=== PATIENT | female | born 1990 | race Caucasian/White ===

== ENCOUNTER 2016-12-28 11:25 | Emergency (ER) | payer SELFPAY ==
[2016-12-28 11:31] VITALS: BP 129/71; PULSE 86; TEMP 98.2; BMI 27.9
[2016-12-28] MEDS ORDERED: IBUPROFEN 400 MG TABLET (FP) PO ONE ×2 (11:48→11:55)
--- NOTE | 2016-12-28 11:54 | PDOC ---
History of Present Illness - General History Source: Patient - History of Present Illness Presenting Symptoms: Chest Pain Timing/Duration: reports: intermittent Chest Pain Radiation: reports: arms - General Chief Complaint: Chest Pain Stated Complaint: CHEST PAIN, LT SIDE NUMBNESS Time Seen by Provider: 12/28/16 11:36 Past History - Past Medical History Asthma: No Cancer: No Cardiac Disorders: No Diabetes: No HTN: No Seizures: No Thyroid Disease: No - Psycho/Social/Smoking Cessation Hx Suicidal Ideation: No Smoking History: Never smoked Have you smoked in the past 12 months: No Information on smoking cessation initiated: No Hx Alcohol Use: No Drug/Substance Use Hx: No Hx Substance Use Treatment: No - Past Medical History Allergies/Adverse Reactions: Allergies Allergy/AdvReac Type Severity Reaction Status Date / Time No Known Allergies Allergy Verified 12/28/16 11:31 Home Medications: Ambulatory Orders Acetaminophen [Tylenol .Regular Strength -] 650 mg PO Q3H PRN #0 tablet Ferrous Sulfate [Feosol] 325 mg PO BID #60 ud 03/06/15 Ibuprofen [Motrin -] 200 mg PO Q4H PRN #0 tablet 03/06/15 Vit/Iron Fumarate/FA [ Tablet] 1 each PO DAILY 03/06/15 Vitamins (Sjr) - 1 tab PO DAILY tablet 03/06/15 Review of Systems - Review of Systems Constitutional: No: Chills, Fever Respiratory: Yes: Shortness of Breath Cardiac (ROS): Yes: Chest Pain. No: Lightheadedness, Palpitations ABD/GI: No: Nausea, Vomiting Neurological: Yes: Headache. No: Dizziness *Physical Exam - Physical Exam General Appearance: Yes: Appropriately Dressed. No: Apparent Distress HEENT: positive: Normal Voice Neck: positive: Supple Respiratory/Chest: positive: Lungs Clear, Normal Breath Sounds. negative: Respiratory Distress Cardiovascular: positive: Regular Rate, S1, S2 Gastrointestinal/Abdominal: positive: Soft. negative: Tender Extremity: positive: Normal Inspection Integumentary: positive: Dry, Warm Neurologic: positive: Fully Oriented, Alert, Normal Mood/Affect, Motor Strength 5/5 - Vital Signs Last Vital Signs Temp Pulse Resp BP Pulse Ox 98.2 F 86 18 129/71 98 12/28/16 11:27 12/28/16 11:27 12/28/16 11:27 12/28/16 11:27 12/28/16 11:27 - Medications Given in the ED: ED Medications Discontinued Medications Generic Name Dose Route Start Last Admin Trade Name Sim PRN Reason Stop Dose Admin Ibuprofen 800 mg 12/28/16 11:48 12/28/16 11:54 Motrin - PO 12/28/16 11:49 800 mg ONCE ONE Administration Medical Decision Making - Medical Decision Making 12/28/16 11:51 12/28/16 12:04 26 yo F, denies any chronic medical complaints, presenting with chest pain. Patient reports left-sided chest pain radiating into left arm and possibly to left leg that started yesterday. States pain is moderate, but unable to describe. Pain intermittent with no exacerbating or alleviating factors. Patient states she's also short or breath, but when asked to explain what she means by "short of breath". Patient responds "like I'm claustrophobic". No palpitations, diaphoresis, n/v. had similar pain at 13 yo while residing in [facility] and went to the ER and given medications though unclear name and type. Denies illicit drug use. Pt also c/o frontal ALONSO x 4-5 days, similar to ALONSO in the past. No dizziness, visual changes, or n/v. See exam CP Recurrent Unlikely ACS and no RF for PE Stable and wel lyric w/ unremarkable exam -ekg/cxr/upreg -anticipate discharge ALONSO Recurrent No red flags -pain control -reassess 12/28/16 12:38 12/28/16 12:58 CXR and EKG unremarkable. Patient remained stable and were well-appearing throughout ED visit. CP and ALONSO since improved. Will dc with PMD follow-up as discussed with ER attending 12/28/16 13:02 (Beth Andre) 12/29/16 08:14 The patient was seen and evaluated in conjunction with LUL Andre under my direct supervision, ancillary studies were reviewed. I agree with the plan as outlined by LUL Andre . (Julien Ziegler) *DC/Admit/Observation/Transfer Diagnosis at time of Disposition: Chest pain Qualifiers: Chest pain type: unspecified Qualified Code(s): R07.9 - Chest pain, unspecified Headache Qualifiers: Headache type: unspecified Headache chronicity pattern: episodic headache Intractability: not intractable Qualified Code(s): R51 - Headache - Discharge Dispostion Disposition: HOME Condition at time of disposition: Improved - Patient Instructions Printed Discharge Instructions: DI for Atypical Chest Pain Additional Instructions: Jurado EKG y la radiografa de trax diandra normales hoy en da. Jurado prueba de embarazo tambin fue negativa. Aunque la causa de felipe quejas es incierta, no parece leonardo ninguna condicin mdica grave en maryanne momento. Si los sntomas persisten, llame para hacer naomi leeann con jurado mdico habitual Print Language: SETSWANA
--- NOTE | 2016-12-28 13:08 | EKG ---
Test Reason : Blood Pressure : / mmHG Vent. Rate : 082 BPM Atrial Rate : 082 BPM P-R Int : 124 ms QRS Dur : 090 ms QT Int : 408 ms P-R-T Axes : 053 045 037 degrees QTc Int : 476 ms NORMAL SINUS RHYTHM NORMAL ECG NO PREVIOUS ECGS AVAILABLE [facility] Confirmed by VAIBHAV OROURKE MD ([id number]) on 12/28/2016 1:08:18 PM Referred By: Confirmed By:VAIBHAV OROURKE MD
--- NOTE | 2016-12-28 13:13 | PDOC ---
*Physical Exam - Vital Signs Last Vital Signs Temp Pulse Resp BP Pulse Ox 98.2 F 86 18 129/71 98 12/28/16 11:27 12/28/16 11:27 12/28/16 11:27 12/28/16 11:27 12/28/16 11:27 Heart Score/ECG Review - ECG Intrepretation Comment:: 12/28/16 13:13 Twelve-lead EKG was performed and reviewed by me. There is normal sinus rhythm with a normal rate. The axis is normal. The intervals are normal. There are no ST or T wave abnormalities. Impression: Normal twelve-lead EKG ED Treatment Course - ADDITIONAL ORDERS Additional order review: Laboratory Results 12/28/16 12:14 Urine HCG, Qual Negative - RADIOLOGY Radiology Studies Ordered: Category Date Time Status CHEST X-RAY PORTABLE* [RAD] Stat Radiology 12/28/16 11:48 Completed - Medications Given in the ED: ED Medications Discontinued Medications Generic Name Dose Route Start Last Admin Trade Name Freq PRN Reason Stop Dose Admin Ibuprofen 800 mg 12/28/16 11:48 12/28/16 11:54 Motrin - PO 12/28/16 11:49 800 mg ONCE ONE Administration *DC/Admit/Observation/Transfer Diagnosis at time of Disposition: Chest pain Qualifiers: Chest pain type: unspecified Qualified Code(s): R07.9 - Chest pain, unspecified Headache Qualifiers: Headache type: unspecified Headache chronicity pattern: episodic headache Intractability: not intractable Qualified Code(s): R51 - Headache - Discharge Dispostion Disposition: HOME Condition at time of disposition: Improved - Referrals - Patient Instructions Printed Discharge Instructions: DI for Atypical Chest Pain Additional Instructions: Navarrete EKG y la radiografa de trax diandra normales hoy en da. Navarrete prueba de embarazo tambin fue negativa. Aunque la causa de felipe quejas es incierta, no parece leonardo ninguna condicin mdica grave en maryanne momento. Si los sntomas persisten, llame para hacer naomi leeann con navarrete mdico habitual Print Language: PRYDEINIG - Post Discharge Activity
== END 2016-12-28 13:07 | disposition home or self-care (01) ==
LOC: JER 11:25
DX: R07.89 Other chest pain (principal); R51 Headache
CPT/HCPCS: 71010-TC; 84703; 93005; 93010; 99282-25

== ENCOUNTER 2017-01-17 22:47 | Emergency (ER) | payer SELFPAY ==
[2017-01-17 22:51] VITALS: BP 123/80; PULSE 86; TEMP 98; BMI 29.2
--- NOTE | 2017-01-18 00:28 | PDOC ---
History of Present Illness - General History Source: Patient Exam Limitations: No Limitations - History of Present Illness Initial Comments: 01/18/17 01:12 The patient is a 26 year old female with no significant past medical history who presents to the ED with complaints of constipation. She states she has been unable to make a BM in four days. She denies taking any laxative or stool softener. The patient also adds that she has a decrease in appetite as well as some nausea but denies vomiting. She denies any fever, chills, chest pain, shortness of breath, or urinary symptoms. <Adeola Aguiar - Last Filed: 01/18/17 01:12> <SaulDenice Aliza - Last Filed: 01/19/17 02:12> - General Chief Complaint: Pain Stated Complaint: CONSTIPATION Past History <Adeola Aguiar - Last Filed: 01/18/17 01:12> - Past Medical History Asthma: No Cancer: No Cardiac Disorders: No Diabetes: No HTN: No Seizures: No Thyroid Disease: No Other medical history: Pt denies - Psycho/Social/Smoking Cessation Hx Suicidal Ideation: No Smoking History: Never smoked Have you smoked in the past 12 months: No Information on smoking cessation initiated: No Hx Alcohol Use: No Drug/Substance Use Hx: No Substance Use Type: None Hx Substance Use Treatment: No <SaulDenice Aliza - Last Filed: 01/19/17 02:12> - Past Medical History Allergies/Adverse Reactions: Allergies Allergy/AdvReac Type Severity Reaction Status Date / Time No Known Allergies Allergy Verified 01/17/17 22:48 Home Medications: Ambulatory Orders Acetaminophen [Tylenol .Regular Strength -] 650 mg PO Q3H PRN #0 tablet Ferrous Sulfate [Feosol] 325 mg PO BID #60 ud 03/06/15 Ibuprofen [Motrin -] 200 mg PO Q4H PRN #0 tablet 03/06/15 Vit/Iron Fumarate/FA [ Tablet] 1 each PO DAILY 03/06/15 Vitamins (Sjr) - 1 tab PO DAILY tablet 03/06/15 Review of Systems - Review of Systems Able to Perform ROS?: Yes Comments:: 01/18/17 01:12 CONSTITUTIONAL: Present: loss of appetite Absent: fever, chills, diaphoresis, generalized weakness, malaise HEENT: Absent: rhinorrhea, nasal congestion, throat pain, throat swelling, difficulty swallowing, mouth swelling, ear pain, eye pain, visual Changes CARDIOVASCULAR: Absent: chest pain, syncope, palpitations, irregular heart rate, lightheadedness , peripheral edema RESPIRATORY: Absent: cough, shortness of breath, dyspnea with exertion, orthopnea, wheezing, stridor, hemoptysis GASTROINTESTINAL: Present: constipation, nausea Absent: abdominal pain, abdominal distension, vomiting, diarrhea, melena, hematochezia GENITOURINARY: Absent: dysuria, frequency, urgency, hesitancy, hematuria, flank pain, genital pain MUSCULOSKELETAL: Absent: myalgia, arthralgia, joint swelling SKIN: Absent: rash, itching, pallor HEMATOLOGIC/IMMUNOLOGIC: Absent: easy bleeding, easy bruising, lymphadenopathy, frequent infections ENDOCRINE: Absent: unexplained weight gain, unexplained weight loss, heat intolerance, cold intolerance NEUROLOGIC: Absent: headache, focal weakness or paresthesias, dizziness, unsteady gait, seizure, mental status changes, bladder or bowel incontinence PSYCHIATRIC: Absent: anxiety, depression, suicidal or homicidal ideation, hallucinations. All Other Systems: Reviewed and Negative <Adeola Agiuar - Last Filed: 01/18/17 01:12> *Physical Exam - Vital Signs Last Vital Signs Temp Pulse Resp BP Pulse Ox 98.0 F 86 20 123/80 100 01/17/17 22:49 01/17/17 22:49 01/17/17 22:49 01/17/17 22:49 01/17/17 22:49 - Physical Exam Comments: 01/18/17 01:14 GENERAL: Well developed, well nourished. Awake and alert. No acute distress. HEENT: Normocephalic, atraumatic. PERRLA, EOMI. No conjunctival pallor. Sclera are non- icteric. Moist mucous membranes. Oropharynx is clear. NECK: Supple. Full ROM. No JVD. Carotid pulses 2+ and symmetric, without bruits. No thyromegaly. No lymphadenopathy. CARDIOVASCULAR: Regular rate and rhythm. No murmurs, rubs, or gallops. Distal pulses are 2+ and symmetric. PULMONARY: No evidence of respiratory distress. Lungs clear to auscultation bilaterally. No wheezing, rales or rhonchi. ABDOMINAL: Soft. Non-tender. Non-distended. No rebound or guarding. No organomegaly. Normoactive bowel sounds. MUSCULOSKELETAL Normal range of motion at all joints. No bony deformities or tenderness. No CVA tenderness. EXTREMITIES: No cyanosis. No clubbing. No edema. No calf tenderness. SKIN: Warm and dry. Normal capillary refill. No rashes. No jaundice. NEUROLOGICAL: Alert, awake, appropriate. Cranial nerves 2-12 intact. No deficits to light touch and temperature in face, upper extremities and lower extremities. No motor deficits in the in face, upper extremities and lower extremities. Normoreflexic in the upper and lower extremities. Normal speech. Toes are down-going bilaterally. Gait is normal without ataxia. PSYCHIATRIC: Cooperative. Good eye contact. Appropriate mood and affect. <Adeola Aguiar - Last Filed: 01/18/17 01:12> - Vital Signs Last Vital Signs Temp Pulse Resp BP Pulse Ox 98.0 F 86 20 123/80 100 01/17/17 22:49 01/17/17 22:49 01/17/17 22:49 01/17/17 22:49 01/17/17 22:49 <Denice Hughes - Last Filed: 01/19/17 02:12> Medical Decision Making - Medical Decision Making 01/18/17 02:30 86-year-old female presented with initial complained that she hadn't had a bowel movement in 4 days. However, with further questioning she admitted that she hasn't been eating as much as she normally does. I asked her if she is . She said she did not know know. Her last menstrual cycle was December 06. She had an IUD removed in October. She denies any recent and past medical history, Abd nontender, no rebound, no guarding She DENIED any Pelvic cramping or bleeding. 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 clinic ultrasound reveals sl IUP 6 weeks 4 days FHT 137,normal ovaries 01/18/17 02:39 <Denice Hughes - Last Filed: 01/19/17 02:12> *DC/Admit/Observation/Transfer - Attestations Scribe Attestion: 01/18/17 01:14 Documentation prepared by Adeola Aguiar, acting as medical assistant dermatology for Denice Hughes MD. <Adeola Aguiar - Last Filed: 01/18/17 01:12> <Denice Hughes - Last Filed: 01/19/17 02:12> Diagnosis at time of Disposition: Constipation - Discharge Dispostion Disposition: HOME Condition at time of disposition: Good - Patient Instructions Printed Discharge Instructions: DI for -- Discomforts and Remedies Additional Instructions: please followup with your supervisor photostat
[2017-01-18 01:14] LABS: URINE APPEARANCE CLEAR; URINE BILIRUBIN NEGATIVE (NEGATIVE); URINE BLOOD 1+ (NEGATIVE); URINE COLOR LTYELLOW; URINE GLUCOSE (UA) NEGATIVE (NEGATIVE); URINE KETONE NEGATIVE (NEGATIVE); URINE LEUK ESTERASE 3+ (NEGATIVE); URINE NITRITE NEGATIVE (NEGATIVE); URINE PROTEIN NEGATIVE (NEGATIVE); URINE UROBILINOGEN NEGATIVE mg/dL (0.2-1.0)
[2017-01-18 01:20] LABS: URINE BACTERIA RARE /hpf (NONE SEEN); URINE RBC 4 /hpf (0-3); URINE WBC 6 /hpf (3-5)
== END 2017-01-18 02:55 | disposition home or self-care (01) ==
LOC: JER 22:47
DX: O26.891 Other specified pregnancy related conditions, first trimester (principal); Z3A.01 Less than 8 weeks gestation of pregnancy; K59.00 Constipation, unspecified
CPT/HCPCS: 76817-TC; 81003; 81015; 84703; 99282-25

== ENCOUNTER 2017-06-14 17:13 | Emergency (ER) | payer OTHER ==
--- NOTE | 2017-06-14 17:46 | PDOC ---
Rapid Medical Evaluation Chief Complaint: Labor Assessment Time Seen by Provider: 06/14/17 17:46 Medical Evaluation: Allergies Allergy/AdvReac Type Severity Reaction Status Date / Time No Known Allergies Allergy Verified 06/14/17 17:44 I have performed a brief in-person evaluation of this patient. The patient presents with a chief complaint of: Lower abd pain radiating to back since yesterday. , ~26 weeks per dates. No vag bleed, discharge, dysuria, n/v/f/c Pertinent physical exam findings: Stable in ED and appears mildly uncomfortable I have ordered the following: nothing, sent to L&D The patient will proceed to the ED for further evaluation.
[2017-06-14 17:48] VITALS: BMI 30.5
[2017-06-14 18:33] VITALS: BP 122/59; PULSE 78; TEMP 98
[2017-06-14 19:39] LABS: URINE APPEARANCE SLCLOUDY; URINE BILIRUBIN NEGATIVE (NEGATIVE); URINE BLOOD 1+ (NEGATIVE); URINE COLOR STRAW; URINE GLUCOSE (UA) NEGATIVE (NEGATIVE); URINE KETONE NEGATIVE (NEGATIVE); URINE NITRITE NEGATIVE (NEGATIVE); URINE PROTEIN NEGATIVE (NEGATIVE); URINE UROBILINOGEN NEGATIVE mg/dL (0.2-1.0)
[2017-06-14 19:40] LABS: URINE LEUK ESTERASE 1+ (NEGATIVE)
[2017-06-14 19:59] LABS: EPI CELLS FEW /HPF (FEW); URINE MUCUS RARE
== END 2017-06-14 21:10 | disposition home or self-care (01) ==
LOC: JER 17:13
DX: O26.892 Other specified pregnancy related conditions, second trimester (principal); R10.30 Lower abdominal pain, unspecified; Z3A.26 26 weeks gestation of pregnancy
CPT/HCPCS: 76775-TC; 81003; 81015; 87086; 99281-25

== ENCOUNTER 2017-09-09 11:30 | Inpatient (IN) | payer OTHER ==
[2017-09-09] MEDS ORDERED: BUTORPHANOL TARTRATE 1 MG/ML VIAL IVPB ONE (12:42)
[2017-09-09] MEDS ORDERED: PROMETHAZINE HCL 25 MG/1 ML VIAL IVPUSH ONE (12:42)
[2017-09-09] MEDS ORDERED: DEXTROSE 5%-LACTATED RINGERS 1,000 ML IV SCH (12:45)
--- NOTE | 2017-09-09 13:21 | HP ---
Past Medical History - Primary Care Physician PCP:: Halley Maynard - Admission Chief Complaint: 27 yrs , 40.3 weeks , onset Lp since 4.00AM .. History of Present Illness: care at [address] [place] [address] . wt gain 14 lbs . 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 Weeks Gestation by Dates: 40.3 ...EDC by Dates: 09/06/17 ...EDC by Sono: 09/06/17 Heme/Onc: No: Anemia Infectious Disease: No: HIV, STD's, Tuberculosis Psych: Yes: Other (declines mental health problems) - Past Surgical History Past Surgical History: Yes: None Hx Myomectomy: No Hx Transabdominal Cerclage: No - Smoking History Smoking history: Never smoked Have you smoked in the past 12 months: No - Alcohol/Substance Use Hx Alcohol Use: No History of Substance Use: reports: None Home Medications - Allergies Allergies/Adverse Reactions: Allergies Allergy/AdvReac Type Severity Reaction Status Date / Time No Known Allergies Allergy Verified 09/05/17 18:38 - Home Medications Home Medications: Ambulatory Orders Vitamins (Sjr) - 1 tab PO DAILY tablet 03/06/15 Physical Exam - Maternity Vital Signs: Vital Signs Temperature 97.5 F L 09/09/17 12:13 Pulse Rate 75 09/09/17 12:13 Respiratory Rate 20 09/09/17 12:13 Blood Pressure 122/66 09/09/17 12:13 O2 Sat by Pulse Oximetry (%) Constitutional: Yes: Well Nourished, Mild Distress Eyes: Yes: WNL HENT: Yes: WNL, Normocephalic Neck: Yes: WNL, Trachea Midline Cardiovascular: Yes: WNL, Regular Rate and Rhythm Lungs: Clear to auscultation Breast(s): Yes: WNL. No: Mass - Abdominal Exam/OB Fundal Height: 40 Number of Fetuses: Single Presentation: Vertex Contractions: Yes Regularity: Irregular (2-3-6 min) Intensity: Mild/Mod Monitor Mode: External Heart Rate (range): 130 Heart Rate Location: [facility] Category: I Accelerations: Uniform Decelerations: None - Vaginal Exam/OB Vaginal Bleediing: No Speculum Exam: No Dilatation (cm): 2-3 Effacement (%): 70 Amniotic Membrane Status: Intact Presentation: Vertex/Position Station: -1 - Physical Exam Musculoskeletal: Yes: WNL Extremities: Yes: WNL. No: Calf Tenderness Edema: Yes Edema: LLE: 1+, RLE: 1+ Integumentary: Yes: WNL Deep Tendon Reflex Grade: Normal +2 ...Motor Strength: WNL Psychiatric: Yes: WNL, Alert, Oriented - Labs Lab Results: Laboratory Tests 09/09/17 09/09/17 09/09/17 12:58 12:58 12:58 WBC 10.6 H Hgb 9.6 L Hct 29.7 L Plt Count 178 Neutrophils % 76.0 Lymphocytes % 17.0 D Monocytes % 5.5 PT with INR 10.60 INR 0.94 PTT (Actin FS) 24.2 L Sodium 137 Potassium 3.7 Chloride 108 H Carbon Dioxide 23 BUN 5 L Creatinine 0.3 L Random Glucose 69 L Blood Type Antibody Screen 09/09/17 12:58 WBC Hgb Hct Plt Count Neutrophils % Lymphocytes % Monocytes % PT with INR INR PTT (Actin FS) Sodium Potassium Chloride Carbon Dioxide BUN Creatinine Random Glucose Blood Type A POSITIVE Antibody Screen Negative Problem List - Problems (1) Post term over 40 weeks Code(s): O48.0 - POST-TERM (2) Labor established Code(s): IRQ5595 - Assessment/Plan 27 yrs , 40.3 weeks , gbs neg, in early labor Plan may ambulate stadol + phenrgan 25 mg iv prn for labor analgesia trial of vaginal delivery
[2017-09-09 13:22] LABS: BASO % 0.7 % (0-2.0); EOS % 0.8 % (0-4.5); HEMATOCRIT 29.7 % (32.4-45.2); HEMOGLOBIN 9.6 GM/dL (10.7-15.3); MCH 24.8 pg (25.7-33.7); MCHC 32.3 g/dl (32.0-36.0); MEAN PLT VOLUME 9.6 fl (7.5-11.1); MONO % 5.5 % (3.8-10.2); PLATELET COUNT 178 K/MM3 (134-434); RBC 3.86 M/mm3 (3.60-5.2); RDW 16.7 % (11.6-15.6); WHITE BLOOD COUNT 10.6 K/mm3 (4.0-10.0)
[2017-09-09 13:31] VITALS: BMI 32.4
[2017-09-09 13:36] LABS: ANION GAP 6 (8-16); BLOOD UREA NITROGEN 5 mg/dL (7-18); CALCIUM 8.6 mg/dL (8.5-10.1); CHLORIDE 108 mmol/L (98-107); CO2 23 mmol/L (21-32); CREATININE 0.3 mg/dL (0.55-1.02); GLUCOSE,RANDOM 69 mg/dL (74-106); POTASSIUM 3.7 mmol/L (3.5-5.1); SODIUM 137 mmol/L (136-145)
[2017-09-09 13:42] LABS: INR 0.94 (0.82-1.09); PROTHROMBIN TIME (PATIENT) 10.6 SEC (9.98-11.88)
[2017-09-09 13:45] LABS: ACTIVATED PTT 24.2 SECONDS (26.9-34.4)
--- NOTE | 2017-09-09 14:56 | PN ---
Progress Note, Labor Vaginal Exam #1 Labor Exam Date: 09/09/17 Labor Exam Time: 14:45 Heart Rate (range): 130 Dilatation: 5 Effacement (%): 90 Amniotic Membrane Status: Ruptured (AROM , clear) Station: -1 (scalp electrode applied) Remarks: uc 2-4 min fhr cat 2, variable dece to 60 bpm noted Selected Entries 09/09/17 14:00 Temperature 97.6 F Pulse Rate 68 Blood Pressure 108/61 Vaginal Exam #2 Labor Exam Date: 09/09/17 Labor Exam Time: 15:15 Heart Rate (range): 130 Dilatation: 8 Effacement (%): 100 Amniotic Membrane Status: Ruptured Presentation: Vertex/Position Station: +1 Remarks: fhr cat-1 uc q2 min 15.38 hr fully dilated , vx +2/+3 station pt pushing 15.44hr
[2017-09-09] MEDS ORDERED: OXYTOCIN 20 UNITS in 0.9% NS 40 UNIT/2,000 ML INFUS.BAG IV ONE (15:13)
--- NOTE | 2017-09-09 16:07 | PN ---
Delivery - Delivery Vaginal Delivery: No Problems, Spontaneous (baby delievered on Felix position, immediate oral & nasa suction was done before delivery of shouder) Episiotomy/Laceration: None EBL (cc): 250 Delivery, Single - Stages of Labor Date 1st Stage Initiatied: 09/09/17 Time 1st Stage Initiated: 04:00 Date 2nd Stage Initiated: 09/09/17 Time 2nd Stage Initiated: 15:38 Date of Delivery: 09/09/17 Time of Delivery: 15:44 Date Placenta Delivered: 09/09/17 Time Placenta Delivered: 15:55 Placenta: Yes: Spontaneous, Uterine Exploration - Condition of Application Penetration Tester/Veterans' Coordinator Present: No Infant Gender: Female Weight: 8 lb 8 oz Position: Left, OA Total Hours ROM (Hrs/Mins): 1hr 05 min - 1 Minute Total Score: 9 10 Minutes Total Score: 9 - [place] Feeding Plan Initial Plan: Elected not to breastfeed exclusively throughout hospitalization Remarks - Remarks Remarks: 27 yrs , 40.3 weeks in labor, gbs neg . pnc at [address] [place] [address] h/o anemia Intrapartum course uneventful
[2017-09-09] MEDS ORDERED: BENZOCAINE 28 GM HEMORRHOIDAL OINTMENT TP PRN (16:27)
[2017-09-09] MEDS ORDERED: METHYLERGONOVINE MALEATE 0.2 MG/1 ML AMP IM PRN (16:27)
[2017-09-09] MEDS ORDERED: WITCH HAZEL 50% (TUCKS) 40 PAD/JAR PAD TP PRN (16:27)
[2017-09-09] MEDS ORDERED: BISACODYL 10 MG SUPP.RECT RC PRN (16:27)
[2017-09-09] MEDS ORDERED: oxyCODONE HCL 5 MG TABLET PO PRN (16:27)
[2017-09-09] MEDS ORDERED: BENZOCAINE 20% 57 GM BOTTLE TP PRN (16:27)
[2017-09-09] MEDS ORDERED: OXYTOCIN 20 UNITS in 0.9% NS 20 UNIT/1,000 ML INFUS.BAG IV SCH (16:30)
[2017-09-09] MEDS ORDERED: IBUPROFEN 600 MG TABLET (FP) PO ONE (16:49)
[2017-09-09] MEDS ORDERED: OXYTOCIN 20 UNITS in 0.9% NS 20 UNIT/1,000 ML INFUS.BAG IV ONE (16:49)
[2017-09-09] MEDS ORDERED: ACETAMINOPHEN 325 MG TABLET (FP) ONE (16:49)
[2017-09-09] MEDS: ACETAMINOPHEN 325 MG TABLET (FP) PO PRN (16:55)
[2017-09-09] MEDS: IBUPROFEN 600 MG TABLET (FP) PO PRN (16:55)
[2017-09-09] MEDS: FERROUS SO4 325 MG TABLET (FP) PO SCH (18:17)
--- NOTE | 2017-09-10 07:36 | PN ---
Post Progress Note - Subjective Subjective: no complains except cramps sometimes Post Day: 1 Type of Delivery: Vital Signs: Vital Signs Temperature 98.3 F 09/10/17 05:00 Pulse Rate 76 09/10/17 05:00 Respiratory Rate 18 09/10/17 05:00 Blood Pressure 103/53 09/10/17 05:00 O2 Sat by Pulse Oximetry (%) Breast Exam: Yes: Soft, Other (BF ). No: Engorged Uterus: Yes: Fundus Firm, Fundus below umbilicus Lochia: Yes: Rubra Lochia, amount: Moderate Extremities: Yes: Calves non-tender Perineum: Yes: Intact Activity: Ambulating - Labs Labs: CBC WBC 10.6 K/mm3 (4.0-10.0) H 09/09/17 12:58 RBC 3.86 M/mm3 (3.60-5.2) 09/09/17 12:58 Hgb 9.6 GM/dL (10.7-15.3) L 09/09/17 12:58 Hct 29.7 % (32.4-45.2) L 09/09/17 12:58 MCV 77.0 fl (80-96) L 09/09/17 12:58 MCH 24.8 pg (25.7-33.7) L 09/09/17 12:58 MCHC 32.3 g/dl (32.0-36.0) 09/09/17 12:58 RDW 16.7 % (11.6-15.6) H 09/09/17 12:58 Plt Count 178 K/MM3 (134-434) 09/09/17 12:58 MPV 9.6 fl (7.5-11.1) 09/09/17 12:58 Neutrophils % 76.0 % (42.8-82.8) 09/09/17 12:58 Lymphocytes % 17.0 % (8-40) D 09/09/17 12:58 Monocytes % 5.5 % (3.8-10.2) 09/09/17 12:58 Eosinophils % 0.8 % (0-4.5) 09/09/17 12:58 Basophils % 0.7 % (0-2.0) 09/09/17 12:58 Problem List - Problems (1) Post term over 40 weeks Code(s): O48.0 - POST-TERM (2) Labor established Code(s): [id number] - Assessment/Plan pp stable. anemia asymptomatic plan cbc today discharge tomorrow.
[2017-09-10 07:56] LABS: BASO % 0.9 % (0-2.0); EOS % 1.2 % (0-4.5); HEMATOCRIT 29.1 % (32.4-45.2); HEMOGLOBIN 9.6 GM/dL (10.7-15.3); MCHC 32.9 g/dl (32.0-36.0); MEAN CELL VOLUME 76.1 fl (80-96); MEAN PLT VOLUME 9.6 fl (7.5-11.1); MONO % 7.4 % (3.8-10.2); NEUT % 73.5 % (42.8-82.8); PLATELET COUNT 148 K/MM3 (134-434); RBC 3.82 M/mm3 (3.60-5.2); RDW 16.7 % (11.6-15.6); WHITE BLOOD COUNT 12.7 K/mm3 (4.0-10.0)
[2017-09-10] MEDS: FERROUS SO4 325 MG TABLET (FP) PO SCH ×2 (08:08→18:13)
[2017-09-10] MEDS: PRENATAL VITAMINS W/ FOLIC ACID TABLET (FP) PO SCH (09:22)
[2017-09-10] MEDS ORDERED: FLU VACCINE QUAD 60 MCG/0.5 ML (MDV 17-18) IM ONE (10:00)
[2017-09-10] MEDS ORDERED: DIPHTH,PERTUSS(ACELL),TET 0.5 ML DISP.SYRIN IM ONE (10:00)
[2017-09-10] MEDS ORDERED: SENNOSIDES/DOCUSATE COMBO (SENNA PLUS) TABLET (UD) PO PRN (22:00)
[2017-09-10] MEDS: IBUPROFEN 600 MG TABLET (FP) PO PRN (23:32)
[2017-09-10] MEDS: ACETAMINOPHEN 325 MG TABLET (FP) PO PRN (23:33)
[2017-09-11] MEDS: FERROUS SO4 325 MG TABLET (FP) PO SCH (07:49)
[2017-09-11 08:36] VITALS: BP 116/51; PULSE 77; TEMP 97.4
--- NOTE | 2017-09-11 10:14 | DS ---
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 Vital Signs: Vital Signs Temperature 97.4 F L 09/11/17 08:35 Pulse Rate 77 09/11/17 08:35 Respiratory Rate 20 09/11/17 08:35 Blood Pressure 116/51 09/11/17 08:35 O2 Sat by Pulse Oximetry (%) Constitutional: Yes: Well Nourished, Other (no c/odizziness or headache) Eyes: Yes: WNL HENT: Yes: WNL, Normocephalic Neck: Yes: WNL, Trachea Midline Cardiovascular: Yes: WNL Respiratory: Yes: WNL Gastrointestinal: Yes: WNL ...Rectal Exam: Yes: WNL Renal/: Yes: WNL ....Post : Yes: Uterus firm, Uterus non-tender, Moderate lochia rubra ( perineum intact) Breast(s): Yes: WNL (BF , breast not engorged) Musculoskeletal: Yes: WNL Extremities: Yes: WNL. No: Calf Tenderness Edema: Yes Edema: LLE: Trace, RLE: Trace Integumentary: Yes: WNL Neurological: Yes: WNL ...Motor Strength: WNL Psychiatric: Yes: WNL, Alert, Oriented Labs: CBC, BMP 09/10/17 07:00 09/09/17 12:58 Delivery - Delivery Vaginal Delivery: No Problems, Spontaneous (baby delievered on Felix position, immediate oral & nasa suction was done before delivery of shouder) Episiotomy/Laceration: None EBL (cc): 250 Delivery, Single - Stages of Labor Date 1st Stage Initiatied: 09/09/17 Time 1st Stage Initiated: 04:00 Date 2nd Stage Initiated: 09/09/17 Time 2nd Stage Initiated: 15:38 Date of Delivery: 09/09/17 Time of Delivery: 15:44 Time Placenta Delivered: 15:55 Placenta: Yes: Spontaneous, Uterine Exploration - Condition of Clinical Laboratory Technologist/Director Loss Prevention Present: No Gender: Female Weight: 8 lb 8 oz Position: Left, OA Total Hours ROM (Hrs/Mins): 1hr 05 min - 1 Minute Total Score: 9 10 Minutes Total Score: 9 - [place] Feeding Plan Initial Plan: Elected not to breastfeed exclusively throughout hospitalization Remarks - Remarks Remarks: 27 yrs , 40.3 weeks in labor, gbs neg . pnc at 2, [facility] h/o anemia Intrapartum course uneventful pp course uneventful. anemia counselled discharge today Discharge Summary Reason For Visit: LABOR ADMISSION Current Active Problems Labor established (Acute) Normal spontaneous vaginal delivery (Acute) Post term over 40 weeks (Acute) Condition: Stable - Instructions Diet, Activity, Other Instructions: Post Instructions DIET: Continue good diet high in protein, calcium, and iron rich foods. Drink at least eight (8) glasses of water daily in addition to other fluids. ___ Regular diet MEDICATIONS: Continue vitamins and iron as previously directed. Motrin and Tylenol may be taken for minor discomfort. ACTIVITY: Mild to moderate exercise may be started in two (2) weeks. Take frequent rest periods. Resume normal activity after six (6) week check up. WOUND CARE OF OPERATIVE SITE: Continue use of perineal bottle until vaginal discharge stops. Keep area clean. Shower daily. Keep abdominal wound dry. Report any drainage or redness to physician. Tub baths, tampons and douches are not permitted for [address] Breast feeding & or Bottle feeding BREAST CARE: (For those that are not breast feeding): If engorgement occurs: Wear tight fitting bra. Take Tylenol or Motrin for pain. Apply cold packs (ice in bags to each breast ) FAMILY PLANNING: There are many control alternatives to pursue and they should be discussed at your first office visit. You may resume sexual activity after your six (6) week check up. (Remember, breast feeding is not a contraceptive) NEXT PHYSICIAN APPOINTMENT: Be certain to call for a six (6) week appointment, unless otherwise directed. Call Clinic or got to Emergency Dept if you have any of the following: Heavy vaginal bleeding Painful urination Leg pain Unusual odor noted to vaginal bleeding High fever Red streaking noted on breast Referrals: Halley Maynard MD [Staff Physician] - Disposition: HOME - Home Medications Comprehensive Discharge Medication List: Ambulatory Orders Vitamins (Sjr) - 1 tab PO DAILY tablet 03/06/15 Acetaminophen [Tylenol .Regular Strength -] 650 mg PO Q3H PRN tablet 09/11/17 Ferrous Sulfate [Feosol] 325 mg PO BIDWM #60 ud 09/11/17 Ibuprofen [Motrin -] 200 mg PO Q4H PRN tablet 09/11/17 Vitamins (Sjr) - 1 tab PO DAILY #30 tablet 09/11/17
[2017-09-11] MEDS: PRENATAL VITAMINS W/ FOLIC ACID TABLET (FP) PO SCH (10:30)
== END 2017-09-11 11:45 | disposition home or self-care (01) | DRG 560 ==
LOC: JDEL 11:30 → JLDR 12:25 → J3W 17:24
PROVIDERS: ADMIT Obstetrics & Gynecology; ATTEND Obstetrics & Gynecology
PROC: 10E0XZZ Delivery of Products of Conception, External Approach (ICD-10-PCS; principal; 2017-09-09)
DX: O48.0 Post-term pregnancy (principal); O99.02 Anemia complicating childbirth; D64.9 Anemia, unspecified; Z3A.40 40 weeks gestation of pregnancy; Z37.0 Single live birth
CPT/HCPCS: 36415; 59409; 80048; 85025; 85610; 85730; 86593; 86850; 86900; 86901; 90688; 90715

== ENCOUNTER 2017-10-31 18:02 | Emergency (ER) | payer OTHER ==
--- NOTE | 2017-10-31 18:20 | PDOC ---
Rapid Medical Evaluation Time Seen by Provider: 10/31/17 18:17 Medical Evaluation: Allergies Allergy/AdvReac Type Severity Reaction Status Date / Time No Known Allergies Allergy Verified 09/05/17 18:38 10/31/17 18:17 Healthy 27 year old female with headache, left-sided facial, tongue, and arm numbness since 7am. No history of migraines. Well outside window for TPA with low NIHSS, Code Farfan not activated. Alert, oriented, no distress. Speech normal. No focal weakness. Subjective decrease in sensation left face/left arm. Plan: -Basic labs -CT brain -To Main ED for further evaluation
[2017-10-31 18:22] VITALS: BP 121/79; PULSE 70; TEMP 98.1; BMI 28.8
[2017-10-31 19:10] LABS: BASO % 1.2 % (0-2.0); EOS % 3.7 % (0-4.5); HEMATOCRIT 35.5 % (32.4-45.2); HEMOGLOBIN 11.5 GM/dL (10.7-15.3); LYMPH % 39.9 % (8-40); MCH 25.7 pg (25.7-33.7); MCHC 32.5 g/dl (32.0-36.0); MEAN CELL VOLUME 79.1 fl (80-96); MEAN PLT VOLUME 8.3 fl (7.5-11.1); MONO % 8.3 % (3.8-10.2); NEUT % 46.9 % (42.8-82.8); PLATELET COUNT 279 K/MM3 (134-434); RBC 4.48 M/mm3 (3.60-5.2); WHITE BLOOD COUNT 6.8 K/mm3 (4.0-10.0)
[2017-10-31 19:33] LABS: INR 0.93 (0.82-1.09); PROTHROMBIN TIME (PATIENT) 10.5 SEC (9.7-13.0)
--- NOTE | 2017-10-31 19:36 | PDOC ---
History of Present Illness - General Chief Complaint: Headache Stated Complaint: HEADACHE Time Seen by Provider: 10/31/17 18:17 History Source: Patient Exam Limitations: No Limitations - History of Present Illness Initial Comments: 10/31/17 19:32 Best Contact: Pmhx: N/A Pshx: N/A Allergies: NKDA LMP: 10/11/2017 27-year-old healthy female presents to the emergency department with bitemporal throbbing headache with left-sided cheek/tongue and humeral numbness since 7 AM without dizziness, lightheadedness, facial pain, earaches, sore throat, rhinorrhea, nasal congestion, neck pain/stiffness, back pains, chest pain, shortness of breath, abdominal pains, extremity weakness. Patient states she is able to ambulate without any difficulties. Past History - Past Medical History Allergies/Adverse Reactions: Allergies Allergy/AdvReac Type Severity Reaction Status Date / Time No Known Allergies Allergy Verified 10/31/17 18:18 Home Medications: Ambulatory Orders NK [No Known Home Medication] 10/31/17 Asthma: No Cancer: No Cardiac Disorders: No COPD: No Diabetes: No HTN: No Seizures: No Thyroid Disease: No Other medical history: DENIES. - Suicide/Smoking/Psychosocial Hx Smoking History: Never smoked Have you smoked in the past 12 months: No Hx Alcohol Use: No Drug/Substance Use Hx: No Substance Use Type: None Hx Substance Use Treatment: No Review of Systems - Review of Systems Able to Perform ROS?: Yes Comments:: 10/31/17 19:38 CONSTITUTIONAL: Absent: fever, chills, diaphoresis, generalized weakness, malaise, loss of appetite HEENT: Absent: rhinorrhea, nasal congestion, throat pain, throat swelling, difficulty swallowing, mouth swelling, ear pain, eye pain, visual Changes CARDIOVASCULAR: Absent: chest pain, loss of consciousness, palpitations, irregular heart rate, peripheral edema RESPIRATORY: Absent: cough, shortness of breath, dyspnea with exertion, orthopnea, wheezing, stridor, hemoptysis GASTROINTESTINAL: Absent: abdominal pain, abdominal distension, nausea, vomiting, diarrhea, constipation, melena, hematochezia GENITOURINARY: Absent: dysuria, frequency, urgency, hesitancy, hematuria, flank pain, genital pain MUSCULOSKELETAL: Absent: myalgia, arthralgia, joint swelling SKIN: Absent: rash, itching, pallor HEMATOLOGIC/IMMUNOLOGIC: Absent: easy bleeding, easy bruising, lymphadenopathy, frequent infections ENDOCRINE: Absent: unexplained weight gain, unexplained weight loss, heat intolerance, cold intolerance NEUROLOGIC: Bi temporal fuentes, left-sided facial, tongue and left humeral numbness Absent:focal weakness or paresthesias, dizziness, unsteady gait, seizure, mental status changes, bladder or bowel incontinence PSYCHIATRIC: Absent: anxiety, depression, suicidal or homicidal ideation, hallucinations. Is the patient limited Macedonian proficient: No *Physical Exam - Vital Signs Last Vital Signs Temp Pulse Resp BP Pulse Ox 98.1 F 70 19 121/79 98 10/31/17 18:18 10/31/17 18:18 10/31/17 18:18 10/31/17 18:18 10/31/17 18:18 Moderate Sedation - Procedure Monitoring Vital Signs: Vital Signs Temp Pulse Resp BP Pulse Ox 98.1 F 70 19 121/79 98 10/31/17 18:18 10/31/17 18:18 10/31/17 18:18 10/31/17 18:18 10/31/17 18:18 ED Treatment Course - LABORATORY CBC & Chemistry Diagram: 10/31/17 19:00 10/31/17 19:00 - ADDITIONAL ORDERS Additional order review: 10/31/17 19:00 RBC 4.48 MCV 79.1 L MCHC 32.5 RDW 20.0 H D MPV 8.3 D Neutrophils % 46.9 D Lymphocytes % 39.9 D Monocytes % 8.3 Eosinophils % 3.7 D Basophils % 1.2 Progress Note - Progress Note Progress Note: 1939hrs: signed out to GEORGETTE Hughes *DC/Admit/Observation/Transfer Diagnosis at time of Disposition: Numbness and tingling - Discharge Dispostion Disposition: AGAINST MEDICAL ADVICE - Referrals Referrals: Jose Guadalupe Angela MD [Staff Physician] - Call tomorrow - Patient Instructions Printed Discharge Instructions: DI for Numbness/tingling Additional Instructions: please follow up with a neurologist. Print Language: GERMAN - Post Discharge Activity
[2017-10-31 19:48] LABS: ALK PHOS 72 U/L (45-117); ANION GAP 3 (8-16); BILIRUBIN,TOTAL 0.3 mg/dL (0.2-1.0); BLOOD UREA NITROGEN 7 mg/dL (7-18); CALCIUM 8.3 mg/dL (8.5-10.1); CHLORIDE 107 mmol/L (98-107); CO2 29 mmol/L (21-32); CREATININE 0.5 mg/dL (0.55-1.02); GLUCOSE,RANDOM 98 mg/dL (74-106); SGOT/AST 50 U/L (15-37); SGPT/ALT 115 U/L (12-78); SODIUM 139 mmol/L (136-145); TOT PROT 7.7 g/dl (6.4-8.2)
--- NOTE | 2017-10-31 19:57 | PDOC ---
*Physical Exam - Vital Signs Last Vital Signs Temp Pulse Resp BP Pulse Ox 98.1 F 70 19 121/79 98 10/31/17 18:18 10/31/17 18:18 10/31/17 18:18 10/31/17 18:18 10/31/17 18:18 - Physical Exam General Appearance: Yes: Appropriately Dressed Respiratory/Chest: positive: Lungs Clear, Normal Breath Sounds. negative: Chest Tender Cardiovascular: positive: Regular Rhythm, Regular Rate Gastrointestinal/Abdominal: positive: Normal Bowel Sounds, Soft Extremity: positive: Normal Capillary Refill, Normal Inspection, Normal Range of Motion Integumentary: positive: Normal Color, Dry, Warm Neurologic: positive: Fully Oriented, Alert, Normal Mood/Affect Heart Score/ECG Review - History History: Slightly suspicious - Electrocardiogram EKG: Normal - Age Age: </= 45 - Risk Factors Based on the list above the patient has:: No risk factors known - Troponin Troponin: </= normal limit - Score Heart Score - Total: 0 - ECG Intrepretation Rhythm: Regular Rhythm Comment:: 10/31/17 21:42 NSR : 61 bpm ED Treatment Course - LABORATORY CBC & Chemistry Diagram: 10/31/17 19:00 10/31/17 19:00 - ADDITIONAL ORDERS Additional order review: Laboratory Results 10/31/17 10/31/17 19:00 19:00 PT with INR 10.50 INR 0.93 Serum , Qual Negative 10/31/17 19:00 RBC 4.48 MCV 79.1 L MCHC 32.5 RDW 20.0 H D MPV 8.3 D Neutrophils % 46.9 D Lymphocytes % 39.9 D Monocytes % 8.3 Eosinophils % 3.7 D Basophils % 1.2 Progress Note - Progress Note Progress Note: 27 year old female with left side of body and facial numbness since 7 am. patient also reports that she has been having pleuriritc chest pain since 7 am. denies past medical history . s/p 2 months ago. uncomplicated labor and delivery. patient took tylenol today. A: r/o CVA/ PE/ P; d-dimer, EKG, chest xray added. ct head wnl. LFTS elevated. history of Medical Decision Making - Medical Decision Making 10/31/17 21:[address] Angela contacted. dr. Bobby recommends MRI r/o acute finding 10/31/17 22:08 i spoke to patient with [facility] sign language interpreter service. all risk factors and results reviewed. patient advised to admitted for MRI and neurology evaluation. patient refused at this time. she reports that she has a at home that does not have grocery worker. patient signed out AMA. *DC/Admit/Observation/Transfer Diagnosis at time of Disposition: Numbness and tingling - Discharge Dispostion Disposition: AGAINST MEDICAL ADVICE - Referrals Referrals: Jose Guadalupe Angela MD [Staff Physician] - Call tomorrow - Patient Instructions Printed Discharge Instructions: DI for Numbness/tingling Additional Instructions: please follow up with a neurologist. - Post Discharge Activity NIH Stroke Scale - Last Known Well Date/Time & Onset Date Last Known Well: 10/31/17 Time Last Known Well: 07:00 - Initial Evaluation Level of consciousness: Alert Ask patient the month and their age: Answers both correctly Ask patient to open & close eyes; make fist and let go: Obeys both correctly Best gaze (horizontal eye movement): Normal Visual field testing: No visual field loss Facial paresis (Show teeth/raise eyebrows/close eyes tight): Normal symmetrical movement Motor Function: Left Arm: Normal Motor Function: Right Arm: Normal (extends arm 90 (or 45) degrees for 10 seconds without drift Motor Function: Left Leg: Normal (extends leg 30 degrees for 5 seconds without drift) Motor Function: Right Leg: Normal (extends leg 30 degrees for 5 seconds without drift) Limb Ataxia: No ataxia Sensory(Use pinprick test arms,legs,trunk,face/side to side): Mild to moderate decrease in sensation Best language (Describe picture, name items, read sentences): No Aphasia Dysarthria (read several words): Normal articulation Extinction and Inattention: No abnormality - Total Score NIH Stroke Scale Score: 1
--- NOTE | 2017-11-01 16:17 | EKG ---
Test Reason : Blood Pressure : / mmHG Vent. Rate : 061 BPM Atrial Rate : 061 BPM P-R Int : 130 ms QRS Dur : 086 ms QT Int : 470 ms P-R-T Axes : 026 046 041 degrees QTc Int : 473 ms NORMAL SINUS RHYTHM NORMAL ECG WHEN COMPARED WITH ECG OF 28-DEC-2016 11:36, NO SIGNIFICANT CHANGE WAS FOUND Confirmed by MD Beltrán Daniel ([id number]) on 11/01/2017 4:16:35 PM Referred By: Confirmed By:Christo Beltrán MD
== END 2017-10-31 23:13 | disposition left against medical advice (07) ==
LOC: JER 18:02 → JERFT 18:02 → JER 23:13
DX: R20.0 Anesthesia of skin (principal)
CPT/HCPCS: 36415; 70450-TC; 71046-TC-FY; 80053; 84484; 84703; 85025; 85379; 85610; 86618; 93005; 93010; 99281-25

== ENCOUNTER 2018-03-06 16:08 | Emergency (ER) | payer SELFPAY ==
[2018-03-06 16:15] VITALS: BP 120/68; PULSE 80; TEMP 98; BMI 31.4
--- NOTE | 2018-03-06 16:50 | PDOC ---
History of Present Illness - General Chief Complaint: Abscess Boil Stated Complaint: breast pain Time Seen by Provider: 03/06/18 16:35 - History of Present Illness Initial Comments: 28-year-old female without comorbidities presents for evaluation of painful mass under her right axilla 3 days. No other associated symptoms. 03/06/18 16:47 Past History - Past Medical History Allergies/Adverse Reactions: Allergies Allergy/AdvReac Type Severity Reaction Status Date / Time No Known Allergies Allergy Verified 10/31/17 18:18 Home Medications: Ambulatory Orders Cephalexin [Keflex] 500 mg PO QID #40 capsule 03/06/18 Sulfamethoxazole/Trimethoprim [Bactrim Ds -] 1 tab PO BID #14 tablet 03/06/18 Asthma: No Cancer: No Cardiac Disorders: No COPD: No Diabetes: No HTN: No Seizures: No Thyroid Disease: No - Suicide/Smoking/Psychosocial Hx Smoking History: Never smoked Have you smoked in the past 12 months: No Hx Alcohol Use: No Drug/Substance Use Hx: No Substance Use Type: None Hx Substance Use Treatment: No Review of Systems - Review of Systems Integumentary: Yes: See HPI, Lesions All Other Systems: Reviewed and Negative *Physical Exam - Vital Signs Last Vital Signs Temp Pulse Resp BP Pulse Ox 98 F 80 18 120/68 100 03/06/18 16:12 03/06/18 16:12 03/06/18 16:12 03/06/18 16:12 03/06/18 16:12 - Physical Exam Comments: Right axilla skin color and temperature are normal there is some mild swelling and fullness about the anterior inferior aspect of the right axilla. There is no focal fluctuance there is a mass which may represent a note. Surrounding skin is normal color and temperature there are no gross sensorimotor deficits in the right upper extremity. 03/06/18 16:48 Medical Decision Making - Medical Decision Making This is axillary adenopathy or do not appreciate a fluctuant abscess. I recommended warm soaks and I started her on Bactrim and Keflex I will give her general surgery follow-up. 03/06/18 16:48 *DC/Admit/Observation/Transfer Diagnosis at time of Disposition: Axillary adenitis - Discharge Dispostion Disposition: HOME Condition at time of disposition: Stable Decision to Admit order: No - Prescriptions Prescriptions: Cephalexin [Keflex] 500 mg PO QID #40 capsule Sulfamethoxazole/Trimethoprim [Bactrim Ds -] 1 tab PO BID #14 tablet - Referrals Referrals: Devonte Melgar MD [Staff Physician] - - Patient Instructions Additional Instructions: Los antibiticos vick se indica. Regrese a la gabriel de emergencias si los sntomas empeoran o no se resuelven. Por favor, siva un seguimiento con ciruga general en 2-3 springer. Puede usar compresas tibias 5-6 veces al da. Print Language: SPA - Post Discharge Activity
== END 2018-03-06 16:51 | disposition home or self-care (01) ==
LOC: JERFT 16:08
DX: L73.2 Hidradenitis suppurativa (principal)
CPT/HCPCS: 99281-25

== ENCOUNTER 2018-07-30 13:04 | Emergency (ER) | payer SELFPAY ==
[2018-07-30 13:38] VITALS: BP 128/74; PULSE 76; TEMP 98; BMI 32.5
[2018-07-30] MEDS ORDERED: IBUPROFEN 400 MG TABLET (FP) PO ONE ×2 (14:03→14:15)
--- NOTE | 2018-07-30 14:13 | PDOC ---
History of Present Illness - General Chief Complaint: Pain Stated Complaint: BILAT BREAST PAIN Time Seen by Provider: 07/30/18 13:39 History Source: Patient Exam Limitations: No Limitations (b/l breast pain R >L X 2 days) - History of Present Illness Timing/Duration: unsure (b/l breast pain X 2 days, pt is still nursing 11 month old child) Past History - Travel Traveled outside of the country in the last 30 days: No Close contact w/someone who was outside of country & ill: No - Past Medical History Allergies/Adverse Reactions: Allergies Allergy/AdvReac Type Severity Reaction Status Date / Time No Known Allergies Allergy Verified 07/30/18 13:38 Home Medications: Ambulatory Orders NK [No Known Home Medication] 07/30/18 Asthma: No Cancer: No Cardiac Disorders: No COPD: No Diabetes: No HTN: No Seizures: No Thyroid Disease: No - Suicide/Smoking/Psychosocial Hx Smoking History: Never smoked Have you smoked in the past 12 months: No Hx Alcohol Use: No Drug/Substance Use Hx: No Substance Use Type: None Hx Substance Use Treatment: No Review of Systems - Review of Systems Comments:: 07/30/18 14:14 Electronic Component Processor ID: [id number] Is the patient limited Romanian proficient: Yes Constitutional: Yes: Chills. No: Fever Cardiac (ROS): No: Chest Pain *Physical Exam - Vital Signs Last Vital Signs Temp Pulse Resp BP Pulse Ox 98 F 76 18 128/74 100 07/30/18 13:37 07/30/18 13:37 07/30/18 13:37 07/30/18 13:37 07/30/18 13:37 - Physical Exam General Appearance: Yes: Nourished Respiratory/Chest: positive: Lungs Clear, Normal Breath Sounds Cardiovascular: positive: Regular Rhythm, Regular Rate Integumentary: positive: Other (b/l breast without erythema or warmth, milk expressed, no lumps palpated. R breast slightly engorged. ) Neurologic: positive: reinforcing rod layer II-XII NML intact, Fully Oriented, Alert Moderate Sedation - Procedure Monitoring Vital Signs: Procedure Monitoring Vital Signs Temperature 98 F 07/30/18 13:37 Pulse Rate 76 07/30/18 13:37 Respiratory Rate 18 07/30/18 13:37 Blood Pressure 128/74 07/30/18 13:37 O2 Sat by Pulse Oximetry (%) 100 07/30/18 13:37 Medical Decision Making - Medical Decision Making 28y/o F with b/l breast pain X 2 days, nursing 11 month ago baby. Baby is not nursing as much as there is more food choices involved. Pt is still making alot of milk exam without mastitis but R breast engorgement pt encourage to pump to empty breast motrin for pain *DC/Admit/Observation/Transfer Diagnosis at time of Disposition: Breast engorgement, Mastodynia - Discharge Dispostion Disposition: HOME Condition at time of disposition: Stable Decision to Admit order: No - Referrals - Patient Instructions Printed Discharge Instructions: DI for Breast Pain (Mastalgia) Additional Instructions: Please continue to breast feed or pump frequently, take motrin for pain Follow up with your [facility] Return to the Emergency Department if worsening symptom occurs - Post Discharge Activity
== END 2018-07-30 14:24 | disposition home or self-care (01) ==
LOC: JERFT 13:04
DX: N64.59 Other signs and symptoms in breast (principal)
CPT/HCPCS: 99281-25

== ENCOUNTER 2019-01-14 12:34 | Emergency (ER) | payer OTHER | END 2019-01-14 16:10 | disposition home or self-care (01) | LOC: JER 12:34 ==

== ENCOUNTER 2019-04-13 09:44 | Emergency (ER) | payer OTHER ==
[2019-04-13 09:56] VITALS: BP 106/50; PULSE 66; TEMP 97.9; BMI 32.5
--- NOTE | 2019-04-13 10:32 | PDOC ---
History of Present Illness <Byron Ziegleran - Last Filed: 04/13/19 11:59> - General History Source: Patient Exam Limitations: No Limitations - History of Present Illness Initial Comments: 04/13/19 10:13 29 yo F w/ no sig PMHx comes in c/o intermittent sharp-pressure like L sided chest pain for the past 2 weeks. Pt says that when the episodes happen, she feels like she can't breath, starts hyperventilating and her heart starts beating fast. It lasts up to an hour and she gets better. Now she is asymptomatic but she had an attack this am and the chest pain radiated to the left arm, hence the ED visit. No numbness/tingling, no weakness, no diaphoresis , no nausea/vomiting. No fever/chills, no neck pain. no cough, no URI symptoms. (+)h/o panic attacks as a child when she was 7 yo, she saw a specialist back then who gave her pills but in her adulthood she has never had anything similar. No other complaints today 04/13/19 10:34 <Yamila Connelly - Last Filed: 04/13/19 12:31> - General Chief Complaint: Pain Stated Complaint: CHEST PAIN Time Seen by Provider: 04/13/19 10:10 Past History <Byron Ziegleran - Last Filed: 04/13/19 11:59> - Past Medical History Asthma: No Cancer: No Cardiac Disorders: No COPD: No Diabetes: No HTN: No Seizures: No Thyroid Disease: No - Psycho Social/Smoking Cessation Hx Smoking History: Never smoked Have you smoked in the past 12 months: No Hx Alcohol Use: No Drug/Substance Use Hx: No Substance Use Type: None Hx Substance Use Treatment: No <Yamila Connelly - Last Filed: 04/13/19 12:31> - Past Medical History Allergies/Adverse Reactions: Allergies Allergy/AdvReac Type Severity Reaction Status Date / Time No Known Allergies Allergy Verified 04/13/19 09:54 Review of Systems - Review of Systems Able to Perform ROS?: Yes Constitutional: No: Chills, Fever, Malaise, Night Sweats HEENTM: No: Eye Pain, Recent change in vision, Throat Pain Respiratory: Yes: Shortness of Breath. No: Cough Cardiac (ROS): Yes: Chest Pain, Palpitations. No: Chest Tightness ABD/GI: No: Diarrhea, Nausea, Vomiting, Abdominal cramping : No: Dysuria, Hematuria Musculoskeletal: No: Back Pain Integumentary: No: Rash Neurological: No: Headache, Numbness, Dizziness Psychiatric: No: Change in Appetite Endocrine: No: Unexplained Weight Loss <Yamila Connelly - Last Filed: 04/13/19 12:31> *Physical Exam - Vital Signs Last Vital Signs Temp Pulse Resp BP Pulse Ox 97.9 F 66 18 106/50 L 99 04/13/19 09:55 04/13/19 09:55 04/13/19 09:55 04/13/19 09:55 04/13/19 09:55 <Julien Ziegler - Last Filed: 04/13/19 11:59> - Vital Signs Last Vital Signs Temp Pulse Resp BP Pulse Ox 97.9 F 66 18 106/50 L 99 04/13/19 09:55 04/13/19 09:55 04/13/19 09:55 04/13/19 09:55 04/13/19 09:55 - Physical Exam General Appearance: Yes: Nourished. No: Apparent Distress HEENT: positive: NICOLAS, Normal ENT Inspection, Normal Voice. negative: Pale Conjunctivae, Scleral Icterus (R), Scleral Icterus (L) Neck: positive: Supple. negative: Decreased range of motion, Tender midline Respiratory/Chest: positive: Lungs Clear, Normal Breath Sounds. negative: Respiratory Distress, Accessory Muscle Use Cardiovascular: positive: Regular Rhythm, Regular Rate Gastrointestinal/Abdominal: positive: Normal Bowel Sounds, Soft. negative: Tender Musculoskeletal: positive: Normal Inspection. negative: CVA Tenderness, Decreased Range of Motion Extremity: positive: Normal Capillary Refill, Normal Inspection, Normal Range of Motion. negative: Tender, Pedal Edema Integumentary: positive: Normal Color, Dry. negative: Jaundice, Rash Neurologic: positive: Fully Oriented, Alert, Normal Mood/Affect <Ymaila Connelly - Last Filed: 04/13/19 12:31> ED Treatment Course - LABORATORY CBC & Chemistry Diagram: 04/13/19 10:39 04/13/19 10:39 - ADDITIONAL ORDERS Additional order review: Laboratory Results 04/13/19 10:39 Sodium 140 Potassium 3.8 Chloride 107 Carbon Dioxide 27 Anion Gap 6 L BUN 10.9 Creatinine 0.5 L Est GFR (CKD-EPI)AfAm 149.47 Est GFR (CKD-EPI)NonAf 128.97 Random Glucose 133 H Calcium 8.3 L Phosphorus 2.8 Magnesium 2.0 Total Bilirubin 0.3 AST 8 L ALT 17 Alkaline Phosphatase 86 Creatine Kinase 79 Troponin I < 0.02 Total Protein 7.4 Albumin 3.7 Lipase 162 Beta HCG, Quant < 1.0 04/13/19 10:39 RBC 4.24 MCV 85.0 MCHC 33.2 RDW 14.2 MPV 9.5 Neutrophils % 59.8 Lymphocytes % 32.4 Monocytes % 4.1 Eosinophils % 2.6 Basophils % 1.1 <Julien Ziegler - Last Filed: 04/13/19 11:59> - LABORATORY CBC & Chemistry Diagram: 04/13/19 10:39 04/13/19 10:39 <Yamila Connelly - Last Filed: 04/13/19 12:31> Medical Decision Making - Medical Decision Making 04/13/19 12:00 The patient was seen and evaluated in conjunction with LUL Connelly under my direct supervision, ancillary studies were reviewed. I agree with the plan as outlined by LUL Connelly. <Julien Ziegler - Last Filed: 04/13/19 11:59> - Medical Decision Making 04/13/19 10:33 29 yo w/ episodes of CP/SOB, hyperventilation, likely anxiety attack. Will check a set of cardiac enzymes, H/H and reassess. Pt asymptomatic at this time. 04/13/19 12:27 All labs reviewed, WNLs. likely anxiety/panic attack. Pt does not have a PMD, will give PCP for follow up Return for worsening/concerning symptoms Pt verbalizes understanding and agrees with plan <Yamila Connelly - Last Filed: 04/13/19 12:31> Discharge <Julien Ziegler - Last Filed: 04/13/19 11:59> - Discharge Information Problems reviewed: Yes <Yamila Connelly - Last Filed: 04/13/19 12:31> - Discharge Information Clinical Impression/Diagnosis: Anxiety attack Chest pain Qualifiers: Chest pain type: unspecified Qualified Code(s): R07.9 - Chest pain, unspecified Condition: Stable Disposition: HOME - Follow up/Referral Referrals: Conner Denson MD [Staff Physician] - - Patient Discharge Instructions Additional Instructions: Please call provided number to make a follow up appointment with a PCP. Return to the ER for worsening/concerning symptoms. Pr favor llama para hacer naomi leeann con un doctor de cabecera. Regresa en la salla de emergencia en didi que se empeoran felipe simtomas.
[2019-04-13 11:11] LABS: BASO % 1.1 % (0-2.0); EOS % 2.6 % (0-4.5); HEMOGLOBIN 11.9 GM/dL (10.7-15.3); LYMPH % 32.4 % (8-40); MCH 28.2 pg (25.7-33.7); MCHC 33.2 g/dl (32.0-36.0); MEAN PLT VOLUME 9.5 fl (7.5-11.1); MONO % 4.1 % (3.8-10.2); NEUT % 59.8 % (42.8-82.8); PLATELET COUNT 233 K/MM3 (134-434); RBC 4.24 M/mm3 (3.60-5.2); RDW 14.2 % (11.6-15.6); WHITE BLOOD COUNT 7.5 K/mm3 (4.0-10.0)
[2019-04-13 11:43] LABS: ALBUMIN 3.7 g/dl (3.4-5.0); ALK PHOS 86 U/L (45-117); ANION GAP 6 MMOL/L (8-16); BILIRUBIN,TOTAL 0.3 mg/dL (0.2-1); BLOOD UREA NITROGEN 10.9 mg/dL (7-18); CALCIUM 8.3 mg/dL (8.5-10.1); CHLORIDE 107 mmol/L (98-107); CO2 27 mmol/L (21-32); CREATININE 0.5 mg/dL (0.55-1.3); GLUCOSE,RANDOM 133 mg/dL (74-106); LIPASE 162 U/L (73-393); PHOSPHOROUS 2.8 mg/dL (2.5-4.9); POTASSIUM 3.8 mmol/L (3.5-5.1); SGOT/AST 8 U/L (15-37); SGPT/ALT 17 U/L (13-61); SODIUM 140 mmol/L (136-145); TOT PROT 7.4 g/dl (6.4-8.2)
--- NOTE | 2019-04-16 11:01 | EKG ---
Test Reason : Blood Pressure : / mmHG Vent. Rate : 070 BPM Atrial Rate : 070 BPM P-R Int : 126 ms QRS Dur : 094 ms QT Int : 416 ms P-R-T Axes : 049 049 022 degrees QTc Int : 449 ms NORMAL SINUS RHYTHM NORMAL ECG WHEN COMPARED WITH ECG OF 14-JAN-2019 14:02, NO SIGNIFICANT CHANGE WAS FOUND Confirmed by KELLY DAVIDSON MD ([id number]) on 04/16/2019 11:00:43 AM Referred By: Confirmed By:KELLY DAVIDSON MD
== END 2019-04-13 12:39 | disposition home or self-care (01) ==
LOC: JER 09:44
DX: F41.0 Panic disorder [episodic paroxysmal anxiety] (principal); R07.9 Chest pain, unspecified
CPT/HCPCS: 36415; 80053; 82550; 83690; 83735; 84100; 84484; 84702; 85025; 93005; 93010; 99282-25

== ENCOUNTER 2019-12-17 00:57 | Emergency (ER) | payer OTHER ==
[2019-12-17 01:01] VITALS: BMI 31.1
--- NOTE | 2019-12-17 01:48 | PDOC ---
History of Present Illness - General Chief Complaint: Chest Pain Stated Complaint: CHEST PAIN/BACK PAIN Time Seen by Provider: 12/17/19 01:26 History Source: Patient Exam Limitations: Language Barrier - History of Present Illness Initial Comments: 12/17/19 02:41 29y F with no significant PMH presenting to the ER with complaints of chest pain x2-3 days. Pain is substernal, sharp, worsened by coughing and laying down flat, better when leaning forward. She is also endorsing a dry cough which exacerbates the pain. She states she has been taking Motrin which helps. Also endorses occasional bilateral ankle swelling which is resolved now. Denies recent surgeries, travel, OCPs, history of cancer, fever, sick contacts, n/v/d, headache, abdominal pain. She took 400mg Motrin at 8pm and ASA at 11pm (does not recall dosage). Denies smoking, no history of ME in the family. PMD: none PMH: none PSH: none Meds: none Allergies: nkda Social: denies Past History - Medical History Allergies/Adverse Reactions: Allergies Allergy/AdvReac Type Severity Reaction Status Date / Time No Known Allergies Allergy Verified 12/17/19 01:01 Home Medications: Ambulatory Orders NK [No Known Home Medication] 12/17/19 Asthma: No Cancer: No Cardiac Disorders: No COPD: No Diabetes: No HTN: No Seizures: No Thyroid Disease: No - Psycho-Social/Smoking History Smoking History: Never smoked Have you smoked in the past 12 months: No - Substance Abuse Hx (Audit-C & DAST Scrn) How often the patient has a drink containing alcohol: Never Score: In Men: 4 or > Positive; In Women: 3 or > Positive: 0 Screen Result (Pos requires Nsg. Audit-10AR): Negative In the last yr the pt used illegal drug/Rx for NonMed reason: No Score: Yes response is considered Positive: 0 Screen Result (Positive result requires Nsg. DAST-10): Negative Review of Systems - Review of Systems Constitutional: No: Chills, Fever, Malaise HEENTM: No: Symptoms Reported Respiratory: Yes: Cough, Shortness of Breath. No: Stridor, Wheezing, Productive cough, Hemoptysis Cardiac (ROS): Yes: See HPI, Chest Pain. No: Lightheadedness, Palpitations, Syncope ABD/GI: No: Symptoms Reported : No: Symptoms Reported Musculoskeletal: Yes: Back Pain Integumentary: No: Symptoms Reported Neurological: No: Symptoms reported *Physical Exam - Vital Signs Last Vital Signs Temp Pulse Resp BP Pulse Ox 98.1 F 69 18 113/71 100 12/17/19 01:22 12/17/19 01:22 12/17/19 01:22 12/17/19 01:22 12/17/19 01:22 - Physical Exam General Appearance: Yes: Nourished, Appropriately Dressed. No: Apparent Distress HEENT: positive: EOMI, NICOLAS, Normal ENT Inspection Neck: positive: Trachea midline, Supple. negative: Lymphadenopathy (R), Lymphadenopathy (L) Respiratory/Chest: positive: Chest Tender, Lungs Clear, Normal Breath Sounds. negative: Accessory Muscle Use, Decreased Breath Sounds, Crackles, Rales, Rhonchi, Stridor, Wheezing, Dullness, Plerual Rub Cardiovascular: positive: Regular Rhythm, Regular Rate, S1, S2. negative: Edema, JVD, Murmur Vascular Pulses: Dorsalis-Pedis (R): 2+, Doralis-Pedis (L): 2+ Gastrointestinal/Abdominal: positive: Normal Bowel Sounds, Soft. negative: Tender, Guarding, Rebound Musculoskeletal: negative: CVA Tenderness Extremity: positive: Normal Capillary Refill, Normal Inspection, Normal Range of Motion. negative: Tender, Pedal Edema, Swelling, Calf Tenderness, Erythema Integumentary: positive: Normal Color, Dry, Warm Neurologic: positive: java enterprise architect II-XII NML intact, Fully Oriented, Alert, Normal Mood/Affect, Normal Response, Motor Strength 5/5 ED Treatment Course - LABORATORY CBC & Chemistry Diagram: 12/17/19 01:38 12/17/19 01:38 Medical Decision Making - Medical Decision Making 12/17/19 03:33 29y F with no significant PMH presenting to the ER for chest pain, cough. vitals wnl pe: unremarkable, normal findings. no swelling, normal heart and lung sounds. PERC negative. do not suspect ME Ddx includes costochondritis, pleurisy, COVID, pna, pericarditis. -cbc, cmp, trop -ekg,cxr -Tylenol -400mg ibuprofen ekg: nsr, no darshana or depressions. no signs of acute ischemia cxr per my interpretation: no infiltrates or consolidations. pt reports symptomatic relief. suspect costochondritis +/- pleurisy in light of cough and worsening pain with cough. labs wnl, trop negative. will dc home, advise to take Tylenol and motrin. given pmd f/u. return precautions provided. Discussed lab, ecg and xray results with patient. agrees to plan. Discharge - Discharge Information Problems reviewed: Yes Clinical Impression/Diagnosis: Pleurisy, Costochondral chest pain Chest pain Qualifiers: Chest pain type: unspecified Qualified Code(s): R07.9 - Chest pain, unspecified Condition: Good Disposition: HOME - Admission No - Follow up/Referral Referrals: [facility] [place] [facility] [place] [Provider Group] - Patient Discharge Instructions Patient Printed Discharge Instructions: DI for Atypical Chest Pain, DI for Costochondritis, DI for Pleurisy Additional Instructions: Lo vieron hoy en la gabriel de emergencias por dolor en el pecho. Los anlisis de benedicto son normales, el electrocardiograma es normal y la radiografa es normal. No hay signos de infeccin o problema con el corazn. Gratis probablemente se deba a la inflamacin alrededor de los pulmones. Recomiendo corina Motrin y Tylenol para el dolor. Beber mucho lquido. Tambin recomiendo hacer un seguimiento con un mdico de atencin primaria. La referencia se proporciona a continuacin. Regrese a la gabriel de emergencias si tiene un dolor que empeora a pesar de corina los medicamentos, tiene dificultad para respirar, las piernas se hinchan ms, tiene fiebre o si se desarrolla algn sntoma nuevo o preocupante. Linda You were seen in the ER today for chest pain. The blood tests are normal, the EKG is normal and the xray is normal. There is no sign of infection or problem with the heart. This is likely due to inflammation around the lungs. I recommend taking Motrin and Tylenol for the pain. Drink plenty of fluids. I also recommend following up with a primary care doctor. The referral is provided below. Please come back to the ER if you have worsening pain despite taking the medications, have difficutly breathing, the legs are getting more swollen, you have fever or if any new or concerning symptom develops. Thank you Print Language: MAORI - Post Discharge Activity
[2019-12-17 01:49] LABS: BASO % 0.9 % (0-2.0); EOS % 2.2 % (0-4.5); HEMATOCRIT 34.3 % (32.4-45.2); HEMOGLOBIN 11.6 GM/dL (10.7-15.3); LYMPH % 38.8 % (8-40); MCH 28.5 pg (25.7-33.7); MCHC 33.7 g/dl (32.0-36.0); MEAN CELL VOLUME 84.6 fl (80-96); MEAN PLT VOLUME 8.9 fl (7.5-11.1); MONO % 5.1 % (3.8-10.2); PLATELET COUNT 229 K/MM3 (134-434); RBC 4.06 M/mm3 (3.60-5.2); RDW 14.1 % (11.6-15.6); WHITE BLOOD COUNT 10.2 K/mm3 (4.0-10.0)
[2019-12-17] MEDS ORDERED: ACETAMINOPHEN 500 MG TABLET (FP) PO ONE (01:54)
[2019-12-17] MEDS ORDERED: ACETAMINOPHEN 325 MG TABLET (FP) ONE (02:09)
[2019-12-17 02:14] LABS: ALBUMIN 3.8 g/dl (3.4-5.0); ALK PHOS 57 U/L (45-117); ANION GAP 7 MMOL/L (8-16); BILIRUBIN,TOTAL 0.2 mg/dL (0.2-1); BLOOD UREA NITROGEN 9.6 mg/dL (7-18); CALCIUM 8.3 mg/dL (8.5-10.1); CHLORIDE 108 mmol/L (98-107); CO2 25 mmol/L (21-32); CREATININE 0.6 mg/dL (0.55-1.3); GLUCOSE,RANDOM 105 mg/dL (74-106); POTASSIUM 3.6 mmol/L (3.5-5.1); SGOT/AST 10 U/L (15-37); SGPT/ALT 17 U/L (13-61); SODIUM 140 mmol/L (136-145)
--- NOTE | 2019-12-17 02:32 | PDOC ---
Documentation entered by Kel Gomez SCRIBE, acting as scribe for Devonte Coffey MD. Devonte Coffey MD: This documentation has been prepared by the Patricia chaves Nirvannie, SCRIBE, under my direction and personally reviewed by me in its entirety. I confirm that the documentation accurately reflects all work, treatment, procedures, and medical decision making performed by me. Attending Attestation - Resident Resident Name: Debi Joaquin - ED Attending Attestation I have performed the following: I have examined & evaluated the patient, The case was reviewed & discussed with the resident, I agree w/resident's findings & plan, Exceptions are as noted - HPI HPI: 12/17/19 01:59 The patient is a 29 year old female with no significant past medical history who presents to the ED with chest pain and back pain. Reports pain that is worse with position changes and deep breaths. Denies SOB. Denies cough. Denies F/C. Denies OCP use. No leg swelling. No recent travel/immobilization. - Physicial Exam PE: 12/17/19 02:32 "GENERAL: Awake, alert, and fully oriented, in no acute distress. HEAD: No signs of trauma EYES: PERRLA, EOMI, sclera anicteric, conjunctiva clear ENT: Auricles normal inspection, hearing grossly normal, nares patent, oropharynx clear without exudates. Moist mucosa NECK: Nontender, no stepoffs, Normal ROM, supple, no lymphadenopathy, JVD, or masses LUNGS: Breath sounds equal, clear to auscultation bilaterally. No wheezes, and no crackles HEART: Regular rate and rhythm, normal S1 and S2, no murmurs, rubs or gallops ABDOMEN: Soft, nontender, normoactive bowel sounds. No guarding, no rebound. No masses EXTREMITIES: Normal range of motion, no edema. No clubbing or cyanosis. No cords, erythema, or tenderness NEUROLOGICAL: Cranial nerves II through XII intact. 5/5 strength and sensation in all extremities, Normal speech, normal gait, normal cerebellar function SKIN: Warm, Dry, normal turgor, no rashes or lesions noted. - Medical Decision Making 12/17/19 02:33 29 F with atypical chest/back pain. PERC score 0, making PE unlikely. Will r/o ACS with trop and EKG. - Labs, trop - CXR 12/17/19 02:37 Labs wnl CXR clear on my read EKG wnl 12/17/19 02:43 Pt reassessed - pain improved Pt is well appearing, with normal vitals. Clinically stable for DC at this time. I discussed the physical exam findings, ancillary test results and final diagnoses with the patient. I answered all of the patient's questions. The patient was satisfied with the care received and felt comfortable with the discharge plan and treatment plan. The patient agrees to follow up with the primary care physician within 24-72 hours. Please note this patient was evaluated during the COVID-19 crisis with the presidential [place] Act Declaration and the [place] governor executive order number 202. He/she was evaluated and clinical decisions were made relative to healthcare system resources as well as clinical picture during a pandemic crisis situation. Discharge - Discharge Information Problems reviewed: Yes Clinical Impression/Diagnosis: Pleurisy, Costochondral chest pain Chest pain Qualifiers: Chest pain type: unspecified Qualified Code(s): R07.9 - Chest pain, unspecified Condition: Good Disposition: HOME - Follow up/Referral Referrals: [facility] [place] [place] [facility] [place] Group] - Patient Discharge Instructions Patient Printed Discharge Instructions: DI for Atypical Chest Pain, DI for Costochondritis, DI for Pleurisy Additional Instructions: Lo vieron hoy en la gabriel de emergencias por dolor en el pecho. Los anlisis de benedicto son normales, el electrocardiograma es normal y la radiografa es normal. No hay signos de infeccin o problema con el corazn. [place] probablemente se deba a la inflamacin alrededor de los pulmones. Recomiendo corina Motrin y Tylenol para el dolor. Beber mucho lquido. Ramos recomiendo hacer un seguimiento con un mdico de atencin primaria. La referencia se proporciona a continuacin. Regrese a la gabriel de emergencias si tiene un dolor que empeora a pesar de corina los medicamentos, tiene dificultad para respirar, las piernas se hinchan ms, tiene fiebre o si se desarrolla algn sntoma nuevo o preocupante. Linda You were seen in the ER today for chest pain. The blood tests are normal, the EKG is normal and the xray is normal. There is no sign of infection or problem with the heart. This is likely due to inflammation around the lungs. I recommend taking Motrin and Tylenol for the pain. Drink plenty of fluids. I also recommend following up with a primary care doctor. The referral is provided below. Please come back to the ER if you have worsening pain despite taking the medications, have difficutly breathing, the legs are getting more swollen, you have fever or if any new or concerning symptom develops. Thank you Print Language: ESTONIAN - Post Discharge Activity
[2019-12-17] MEDS ORDERED: IBUPROFEN 400 MG TABLET (FP) PO ONE ×2 (02:41→02:45)
[2019-12-17 03:24] VITALS: BP 103/60; PULSE 71; TEMP 97.8
--- NOTE | 2019-12-17 10:20 | EKG ---
Test Reason : Blood Pressure : / mmHG Vent. Rate : 067 BPM Atrial Rate : 067 BPM P-R Int : 136 ms QRS Dur : 094 ms QT Int : 442 ms P-R-T Axes : 048 046 026 degrees QTc Int : 467 ms NORMAL SINUS RHYTHM NORMAL ECG WHEN COMPARED WITH ECG OF 13-APR-2019 09:39, NO SIGNIFICANT CHANGE WAS FOUND Confirmed by Kamilla Herrera ([id number]) on 12/17/2019 10:19:51 AM Referred By: Confirmed By:Kamilla Herrera
== END 2019-12-17 03:29 | disposition home or self-care (01) ==
LOC: JER 00:57
DX: R09.1 Pleurisy (principal); R07.9 Chest pain, unspecified
CPT/HCPCS: 36415; 71046-TC-FY; 80053; 84484; 84703; 85025; 93005; 93010; 99285-25

== ENCOUNTER 2021-02-08 23:08 | Emergency (ER) | payer OTHER ==
[2021-02-08 23:18] VITALS: TEMP 98
[2021-02-09] MEDS ORDERED: METOCLOPRAMIDE HCL INJECTION 10 MG/2 ML VIAL IVPUSH ONE (01:09)
[2021-02-09] MEDS ORDERED: METOCLOPRAMIDE HCL INJECTION 10 MG/2 ML VIAL ONE (01:27)
[2021-02-09 01:51] LABS: BASO % 0.7 % (0-2.0); EOS % 1.6 % (0-4.5); HEMATOCRIT 35.1 % (32.4-45.2); LYMPH % 23.6 % (8-40); MCH 28.5 pg (25.7-33.7); MEAN CELL VOLUME 83.6 fl (80-96); MEAN PLT VOLUME 9.1 fl (7.5-11.1); MONO % 5.3 % (3.8-10.2); NEUT % 68.8 % (42.8-82.8); PLATELET COUNT 243 10^3/uL (134-434); RDW 13.5 % (11.6-15.6); WHITE BLOOD COUNT 9.6 K/mm3 (4.0-10.0)
[2021-02-09 02:03] LABS: INR 1.01 (0.83-1.09); PROTHROMBIN TIME (PATIENT) 12.4 SEC (9.7-13.0)
[2021-02-09 02:05] LABS: ACTIVATED PTT 31.6 SECONDS (25.2-36.5)
[2021-02-09 02:12] LABS: CHLORIDE 106 mmol/L (98-107); SODIUM 139 mmol/L (136-145)
[2021-02-09 02:14] LABS: ANION GAP 8 MMOL/L (8-16); BLOOD UREA NITROGEN 7.6 mg/dL (7-18); CALCIUM 8.5 mg/dL (8.5-10.1); CO2 24 mmol/L (21-32); MAGNESIUM 2.2 mg/dL (1.8-2.4)
[2021-02-09 02:15] LABS: GLUCOSE,RANDOM 87 mg/dL (74-106)
[2021-02-09 02:17] LABS: SGPT/ALT 21 U/L (13-61)
[2021-02-09 02:18] LABS: CREATININE 0.6 mg/dL (0.55-1.3); SGOT/AST 11 U/L (15-37)
[2021-02-09 02:19] LABS: BILIRUBIN,TOTAL 0.4 mg/dL (0.2-1); TOT PROT 7.6 g/dl (6.4-8.2)
[2021-02-09 02:20] LABS: ALK PHOS 60 U/L (45-117)
[2021-02-09 02:23] LABS: N-TERMINAL BNP 38.3 pg/ml (5-125)
[2021-02-09] MEDS ORDERED: IBUPROFEN 600 MG TABLET (FP) PO ONE ×2 (03:32→03:38)
[2021-02-09 03:57] VITALS: BP 106/62; PULSE 69
== END 2021-02-09 03:59 | disposition home or self-care (01) ==
LOC: JER 23:08
PROC: 3E033GC Introduction of Other Therapeutic Substance into Peripheral Vein, Percutaneous Approach (ICD-10-PCS; principal; 2021-02-08)
DX: R51.9 Headache, unspecified (principal); R07.9 Chest pain, unspecified
CPT/HCPCS: 36415; 70450-TC; 80053; 82550; 83735; 83880; 84484; 85025; 85610; 85730; 86850; 86900; 86901; 93005; 93010; 99285-25

== ENCOUNTER 2021-07-21 10:37 | Emergency (ER) | payer OTHER ==
[2021-07-21 10:42] VITALS: BP 128/78; PULSE 106; TEMP 98.5; BMI 24.8
[2021-07-21] MEDS ORDERED: morphine CARPU-JECT 4 MG/1 ML DISP.SYRIN IVPUSH ONE (12:28)
[2021-07-21] MEDS ORDERED: SODIUM CHLORIDE 1,000 ML IV STA (12:28)
[2021-07-21] MEDS ORDERED: ONDANSETRON 4 MG/2 ML VIAL IVPUSH ONE (12:28)
[2021-07-21] MEDS ORDERED: ACETAMINOPHEN 1000 MG/100 ML BAG IVPB ONE (12:35)
[2021-07-21] MEDS ORDERED: ONDANSETRON 4 MG/2 ML VIAL ONE (12:37)
[2021-07-21] MEDS ORDERED: ACETAMINOPHEN INJECTION 100 ML IVPB ONE (12:37)
[2021-07-21 13:18] LABS: BASO % 0.3 % (0-2.0); EOS % 0.5 % (0-4.5); HEMATOCRIT 35.5 % (32.4-45.2); HEMOGLOBIN 11.6 GM/dL (10.7-15.3); LYMPH % 18.4 % (8-40); MCH 25.5 pg (25.7-33.7); MCHC 32.8 g/dl (32.0-36.0); MEAN CELL VOLUME 77.7 fl (80-96); MEAN PLT VOLUME 9.1 fl (7.5-11.1); MONO % 6.4 % (3.8-10.2); NEUT % 74.4 % (42.8-82.8); PLATELET COUNT 268 10^3/uL (134-434); RBC 4.57 M/mm3 (3.60-5.2); RDW 14.5 % (11.6-15.6); WHITE BLOOD COUNT 9.1 K/mm3 (4.0-10.0)
[2021-07-21 13:25] LABS: EPI CELLS >36 /uL (0-25.1); HYALINE CASTS 2 /uL (0-3.1); PH,URINE 6.5 (5.0-8.0); URINE APPEARANCE CLEAR; URINE BACTERIA 418 /uL (0-1359); URINE BILIRUBIN NEGATIVE (NEGATIVE); URINE COLOR YELLOW; URINE GLUCOSE (UA) NEGATIVE (NEGATIVE); URINE KETONE NEGATIVE (NEGATIVE); URINE LEUK ESTERASE 1+ (NEGATIVE); URINE NITRITE NEGATIVE (NEGATIVE); URINE PROTEIN TRACE (NEGATIVE); URINE WBC 41 /uL (0-25.8)
[2021-07-21 13:32] LABS: HCG,QUALITATIVE URINE Negative
[2021-07-21 13:40] LABS: ALBUMIN 3.4 g/dl (3.4-5.0); BLOOD UREA NITROGEN 14.4 mg/dL (7-18); CALCIUM 9.3 mg/dL (8.5-10.1)
[2021-07-21 13:43] LABS: CREATININE 0.3 mg/dL (0.55-1.3)
[2021-07-21 13:44] LABS: BILIRUBIN,TOTAL 0.6 mg/dL (0.2-1)
[2021-07-21 13:53] LABS: URINE RBC 42.3 /uL (0-23.9)
== END 2021-07-21 15:08 | disposition home or self-care (01) ==
LOC: JER 10:37
PROC: 3E033NZ Introduction of Analgesics, Hypnotics, Sedatives into Peripheral Vein, Percutaneous Approach (ICD-10-PCS; principal; 2021-07-21)
PROC: 3E033GC Introduction of Other Therapeutic Substance into Peripheral Vein, Percutaneous Approach (ICD-10-PCS; 2021-07-21)
PROC: 3E033GC Introduction of Other Therapeutic Substance into Peripheral Vein, Percutaneous Approach (ICD-10-PCS; 2021-07-21)
PROC: 3E0337Z Introduction of Electrolytic and Water Balance Substance into Peripheral Vein, Percutaneous Approach (ICD-10-PCS; 2021-07-21)
DX: K29.00 Acute gastritis without bleeding (principal)
CPT/HCPCS: 36415; 76705-TC; 80053; 81003; 83690; 84703; 85025; 87086; 96361; 96374; 96375; 99284-25; C9803; J0131; U0003; U0005

== ENCOUNTER 2023-09-26 23:13 | Emergency (ER) | payer SELFPAY ==
[2023-09-26 23:20] VITALS: BMI 27.8
[2023-09-27] MEDS ORDERED: ONDANSETRON 4 MG/2 ML VIAL ONE (01:28)
[2023-09-27] MEDS ORDERED: ACETAMINOPHEN INJECTION 100 ML IVPB ONE (01:28)
[2023-09-27] MEDS ORDERED: FAMOTIDINE 20 MG/50 ML IVPB 20 MG/50 ML MG IVPB ONE (01:28)
[2023-09-27 01:36] LABS: EPI CELLS 35 /uL (0-25.1); HYALINE CASTS 0 /uL (0-3.1); PH,URINE 5.5 (5.0-8.0); URINE APPEARANCE CLEAR; URINE BACTERIA 1151 /uL (0-1359); URINE BILIRUBIN NEGATIVE (NEGATIVE); URINE COLOR YELLOW; URINE GLUCOSE (UA) NEGATIVE (NEGATIVE); URINE KETONE NEGATIVE (NEGATIVE); URINE LEUK ESTERASE TRACE (NEGATIVE); URINE NITRITE NEGATIVE (NEGATIVE); URINE PROTEIN NEGATIVE (NEGATIVE); URINE UROBILINOGEN 0.2 mg/dL (0.2-1.0); URINE WBC 64 /uL (0-25.8)
[2023-09-27] MEDS: LACTATED RINGERS SOLUTION 1000 ML INFUS.BAG IV ONE (01:45)
[2023-09-27] MEDS: ONDANSETRON 4 MG/2 ML VIAL IVPUSH ONE (01:45)
[2023-09-27] MEDS: ACETAMINOPHEN 1000 MG/100 ML BAG IVPB ONE (01:45)
[2023-09-27] MEDS: FAMOTIDINE 20 MG/50 ML IVPB 20 MG/50 ML MG IVPB ONE (01:45)
[2023-09-27 01:49] LABS: HCG,QUALITATIVE URINE Positive
[2023-09-27 01:52] LABS: BASO % 1.4 % (0-2.0); EOS % 2.8 % (0-4.5); HEMATOCRIT 37.3 % (32.4-45.2); HEMOGLOBIN 12.3 GM/dL (10.7-15.3); MCH 27.2 pg (25.7-33.7); MCHC 32.9 g/dl (32.0-36.0); MEAN CELL VOLUME 82.7 fl (80-96); MEAN PLT VOLUME 8.2 fl (7.5-11.1); MONO % 6.1 % (3.8-10.2); NEUT % 57.7 % (42.8-82.8); PLATELET COUNT 292 10^3/uL (134-434); RBC 4.51 M/mm3 (3.60-5.2); RDW 14.4 % (11.6-15.6); WHITE BLOOD COUNT 9.4 K/mm3 (4.0-10.0)
[2023-09-27 01:59] LABS: INR 1.06 (0.83-1.09); PROTHROMBIN TIME (PATIENT) 12.3 SEC (9.7-13.0)
[2023-09-27 02:01] LABS: ACTIVATED PTT 31.6 SECONDS (25.2-36.5)
[2023-09-27 02:20] LABS: CHLORIDE 106 mmol/L (98-107); POTASSIUM 3.9 mmol/L (3.5-5.1); SODIUM 136 mmol/L (136-145)
[2023-09-27 02:22] LABS: CALCIUM 8.6 mg/dL (8.5-10.1)
[2023-09-27 02:23] LABS: ALBUMIN 3.8 g/dl (3.4-5.0); ANION GAP 5 mmol/L (4-13); BLOOD UREA NITROGEN 6.7 mg/dL (7-18); CO2 26 mmol/L (21-32); GLUCOSE,RANDOM 93 mg/dL (74-106)
[2023-09-27 02:25] LABS: CREATININE 0.5 mg/dL (0.55-1.3)
[2023-09-27 02:26] LABS: SGOT/AST 26 U/L (15-37); SGPT/ALT 31 U/L (13-61)
[2023-09-27 02:27] LABS: BILIRUBIN,TOTAL 0.4 mg/dL (0.2-1); TOT PROT 7.6 g/dl (6.4-8.2)
[2023-09-27 02:28] LABS: ALK PHOS 60 U/L (45-117)
[2023-09-27 05:46] VITALS: BP 124/64; PULSE 72; RESP 20; TEMP 98.3
[2023-09-27 05:51] LABS: URINE RBC 58.1 /uL (0-23.9)
[2023-09-27] MEDS ORDERED: FLUCONAZOLE 150 MG TABLET PO ONE (06:45)
[2023-09-27] MEDS ORDERED: cefTRIAXone SODIUM 1 GM VIAL ONE (06:45)
[2023-09-27] MEDS ORDERED: DOXYCYCLINE HYCLATE 100 MG CAPSULE PO ONE (06:45)
[2023-09-27] MEDS ORDERED: LIDOCAINE HCL 1%, 10 MG/ML (20ML VIAL) ONE (06:46)
[2023-09-27] MEDS: DOXYCYCLINE HYCLATE 100 MG CAPSULE PO ONE (07:02)
[2023-09-27] MEDS: FLUCONAZOLE 150 MG TABLET PO ONE (07:03)
== END 2023-09-27 07:03 | disposition home or self-care (01) ==
LOC: JER 23:13
PROC: 3E033GC Introduction of Other Therapeutic Substance into Peripheral Vein, Percutaneous Approach (ICD-10-PCS; principal; 2023-09-27)
PROC: 3E030GC Introduction of Other Therapeutic Substance into Peripheral Vein, Open Approach (ICD-10-PCS; 2023-09-27)
PROC: 3E030GC Introduction of Other Therapeutic Substance into Peripheral Vein, Open Approach (ICD-10-PCS; 2023-09-27)
PROC: 3E02329 Introduction of Other Anti-infective into Muscle, Percutaneous Approach (ICD-10-PCS; 2023-09-27)
DX: N39.0 Urinary tract infection, site not specified (principal); A64 Unspecified sexually transmitted disease; B37.31 Acute candidiasis of vulva and vagina; R10.84 Generalized abdominal pain; R11.0 Nausea; R68.83 Chills (without fever); R30.0 Dysuria; Z20.822 Contact with and (suspected) exposure to COVID-19
CPT/HCPCS: 0241U-QW; 36415; 74177-TC; 76830-TC; 80053; 81003; 83690; 83735; 84702; 84703; 85025; 85610; 85730; 86850; 86900; 86901; 87070; 87077; 87086; 87205; 87491; 87591; 99285-25; J0131